=== PATIENT | female | born 1950 | race Caucasian/White ===

== ENCOUNTER 2017-09-07 05:57 | Day surgery (SDC) | payer MEDICARE ==
[2017-09-07] MEDS ORDERED: DIPRIVAN 200 MG/20 ML IV ONE (05:58)
[2017-09-07] MEDS ORDERED: Lactated Ringers 1,000 ML IV SCH (06:00)
[2017-09-07] MEDS ORDERED: Lactated Ringers 1,000 ML IV ONE (06:20)
[2017-09-07 09:53] VITALS: BP 131/78; PULSE 76; O2SAT 94
--- NOTE | 2017-09-07 12:27 | OP ---
SURGERY DATE/TIME: 09/07/2017729 PREOPERATIVE DIAGNOSIS: Screening exam. POSTOPERATIVE DIAGNOSIS: Small sigmoid colon polyp. PROCEDURE: Colonoscopy with biopsy. SURGEON: Dr. Palumbo. ANESTHESIA: MAC. Medications given by anesthesia department. HISTORY: The patient is a 67 year-old white female presenting now for screening examination. She reports she had colonoscopy in the past at which time she thinks a polyp was removed. The patient was appraised of the risks of the procedure including the risk of perforation, phlebitis, untoward reaction to medication, bleeding and missed lesions. The patient verbalized her understanding and desired to have the procedure performed. DESCRIPTION OF PROCEDURE: The patient was given the medications by the anesthesia department. She had continuous pulse oximetry, ECG monitoring, intermittent blood pressure monitoring and tidal CO2 monitoring during the examination. She was placed in the left lateral decubitus position. A digital rectal examination was performed and revealed normal anal sphincter tone and no masses. The flexible Olympus pediatric colonoscope was used to intubate the rectum. A view of the colon was developed sequentially to the cecum. Upon insertion and withdrawal, including a retroflex view in the rectum, there was noted small polyp which was removed using pass of cold biopsy forceps to determine the nature of the polyp. The scope was removed from the patient who tolerated the procedure well and was sent back to OP recovery in good condition. The prep was noted to be fair.
== END 2017-09-07 09:30 | disposition home or self-care (01) ==
LOC: SDC 05:57
PROVIDERS: ATTEND Family Medicine
PROC: 0DBN8ZX Excision of Sigmoid Colon, Via Natural or Artificial Opening Endoscopic, Diagnostic (ICD-10-PCS; principal; 2017-09-07)
DX: K63.5 Polyp of colon (principal); Z12.11 Encounter for screening for malignant neoplasm of colon; J44.9 Chronic obstructive pulmonary disease, unspecified; I42.9 Cardiomyopathy, unspecified; Z95.0 Presence of cardiac pacemaker
CPT/HCPCS: 00810; 36415; 88305; J2704